=== PATIENT | female | born 1935 | race Two or more races ===

== ENCOUNTER → 2017-02-14 | Outpatient (CLI) | payer OTHER, MEDICAID | LOC: BMCIMAGING 10:21 | PROVIDERS: ATTEND Nurse Practitioner Adult Health | DX: M81.0 Age-related osteoporosis without current pathological fracture (principal) ==

== ENCOUNTER 2017-02-26 10:37 | Emergency (ER) | payer OTHER, MEDICAID ==
[2017-02-26] MEDS ORDERED: LET GEL TOPICAL 1 EA SYR TP ONE (11:04)
[2017-02-26] MEDS ORDERED: TETANUS, DIPHTHERIA TOX (7YR+) 0.5 ML INJ IM ONE (12:20)
--- NOTE | 2017-02-26 12:30 | EDPHY ---
H & P Time Seen by Provider: 02/26/17 12:13 HPI/ROS: CHIEF COMPLAINT: Facial and knee injury HISTORY OF PRESENT ILLNESS: History from patient and her son who helps translate, per diem interpreter was offered but patient and family declined. This morning at 9:40 a.m. she fell while she was entering her home when she tripped over a post that it been cut off from a previous car port. Landed on her face and injured her left side of her face as well as both knees. She is able to walk. She did not lose consciousness. Denies severe headache. REVIEW OF SYSTEMS: Eye: no change in vision ENT: no sore throat, no nose bleeding, does have nose pain. Cardiac: no chest pain or syncope Pulmonary: no cough or SOB Abdomen: no vomiting, diarrhea, abdominal pain Musculoskeletal: no back pain or neck pain Skin: Abrasions on the face and both knees left greater than right. Neuro: no headache Constitutional: no fever : no urinary symptoms A comprehensive 10 point review of systems is otherwise negative aside from elements mentioned in the history of present illness. PAST MEDICAL HISTORY: Includes UTI, hypertension, GERD, osteoporosis, previous spine fractures, rotator cuff repair. Social history: Here with son, tetanus not up-to-date General Appearance: Alert and conversant, cooperative. Eyes: No scleral icterus. Extraocular motion intact and no proptosis. ENT, Mouth: Normal mucous membranes. No nasal septal hematoma bruising over the nasal septum. Left-sided facial tenderness over the forehead and on the zygoma area and left maxilla. Respiratory: Normal respiratory effort, breath sounds equal, lungs are clear to auscultation. Cardiovascular: Regular rate and rhythm. Gastrointestinal: Abdomen is soft and non tender. Neurological: Alert and oriented x3. Normally conversant. Face symmetric, normal movement and sensation in all extremities. Skin: Abrasions on the left side of the face and cheek as well as on both knees. Musculoskeletal: Normal range of motion of both knees and some tenderness on either side over the patella. Both knee joints are stable. Does not have lateral or joint line tenderness on the left knee, ambulatory. No effusions. No cervical thoracic or lumbar spine point tenderness. Psychiatric: Not agitated. Emergency Department course/MDM: Tetanus updated, x-rays of both knees and face and head. Definitely not syncope. Bilateral knee x-rays personally interpreted as negative for fracture or dislocation. 1355: CT negative except for nasal fracture. 1400: Results discussed the patient and family, stable for discharge. ENT follow-up in 2-3 days. 1430: Discussed with Dr. Verma. I think lateral tibial plateau fracture is unlikely as she does not have an effusion, can walk on it, does not have lateral tenderness to palpation. 1540: CT head discussed with Dr. Sejal Rodriguez. In the context of trauma, this is not appear to show any acute traumatic brain or intracranial injury. The chandler- white abnormality could also represent a chronic finding. Smoking Status: Never smoked Constitutional: Initial Vital Signs Temperature (C) 36.5 C 02/26/17 10:46 Heart Rate 61 02/26/17 10:46 Respiratory Rate 16 02/26/17 10:46 Blood Pressure 231/82 H 02/26/17 10:46 O2 Sat (%) 98 02/26/17 10:46 O2 Delivery Mode Room Air Allergies/Adverse Reactions: No Known Allergies Allergy (Verified 09/24/13 20:16) Home Medications: Medication Instructions Recorded ESOMEPRAZOLE MAG TRIHYDRATE 40 mg PO DAILY 01/29/11 [Nexium] Lisinopril/Hctz 20/12.5MG 1 tab PO DAILY 01/29/11 [Prinzide] Meclizine HCl 25 mg PO Q6-8PRN PRN #20 tablet 03/21/16 Nitrofurantoin 03/21/16 Medical Decision Making - Diagnostics Imaging Results: Imaging Impressions Face CT 02/26/17 12:20 Impression: 1. Comminuted nasal fracture. 2. No other facial fractures. Findings and recommendations discussed with Dr. Horacio Fuller at 1354 hours on February 26, 2017. Final report concurs with initial preliminary interpretation. Head CT 02/26/17 12:20 Impression: 1. Nothing acute intracranially. 2. Small area of chandler-white indistinction at the mid left frontoparietal lobe, in the paracentral gyral region. Query subacute stroke. Findings and recommendations discussed with Dr. Horacio Fuller at 1:51 p.m on February 26, 2017. Final report concurs with initial preliminary interpretation. Knee X-Ray 02/26/17 12:20 Impression: 1. Findings suspicious for fracture of the lateral tibial plateau on the left with mild depression. Suggest clinical correlation. 2. Moderate degenerative changes about the right and left knee joints. Findings discussed with Horacio Fuller M.D. at 14:29 hour, 02/26/2017. Knee X-Ray 02/26/17 12:21 Impression: 1. Findings suspicious for fracture of the lateral tibial plateau on the left with mild depression. Suggest clinical correlation. 2. Moderate degenerative changes about the right and left knee joints. Findings discussed with Horacio Fuller M.D. at 14:29 hour, 02/26/2017. Differential Diagnosis: Differential for facial injury considered including but not limited to zygoma fracture, facial fracture, intracranial hemorrhage, orbital injury. - Data Points Medications Given: Discontinued Medications Tetanus/Diphtheria Toxoids Adsorbed (Tetanus-Diphtheria Tenivac) 0.5 ml IM .ONCE ONE Stop: 02/26/17 12:21 Last Admin: 02/26/17 13:09 Dose: 0.5 ml Tetracaine/Epinephrine/Lidocaine (Let Gel Topical) 1 ea TP EDNOW ONE Stop: 02/26/17 11:05 Last Admin: 02/26/17 11:10 Dose: 1 ea Departure - Departure Disposition: Home, Routine, Self-Care Clinical Impression: Abrasion of knee, left Qualifiers: Encounter type: initial encounter Qualified Code(s): S80.212A - Abrasion, left knee, initial encounter Nasal bone fracture Qualifiers: Encounter type: initial encounter Fracture type: closed Qualified Code(s): S02.2XXA - Fracture of nasal bones, initial encounter for closed fracture Condition: Good Instructions: Nasal Fracture (ED), Abrasion (ED) Referrals: Eris Roa MD [Medical Doctor] - 2-3 days, call for appt. (recheck at ENT office )
[2017-02-26] MEDS ORDERED: TDAP ADULT 0.5 ML INJ (BOOSTRIX) IM ONE (12:32)
[2017-02-26 14:13] VITALS: BP 172/87; PULSE 66; RESP 18; TEMP 98.4; O2SAT 96
== END 2017-02-26 14:13 | disposition home or self-care (01) ==
DX: S02.2XXA Fracture of nasal bones, initial encounter for closed fracture (principal); S80.212A Abrasion, left knee, initial encounter; I10 Essential (primary) hypertension; Z23 Encounter for immunization; W01.198A Fall on same level from slipping, tripping and stumbling with subsequent striking against other object, initial encounter

== ENCOUNTER → 2017-03-07 | Outpatient (CLI) | payer OTHER, MEDICAID | PROVIDERS: ATTEND Nurse Practitioner Adult Health | DX: R13.11 Dysphagia, oral phase (principal); K21.9 Gastro-esophageal reflux disease without esophagitis | CPT/HCPCS: 74230; 92611; G8996; G8997; G8998 ==

== ENCOUNTER 2019-01-26 22:27 | Emergency (ER) | payer OTHER, MEDICAID | END 2019-01-26 23:12 | disposition home or self-care (01) ==